=== PATIENT | male | born 1970 | race Caucasian/White ===

== ENCOUNTER 2023-04-23 17:13 | Observation (INO) | payer BC ==
[~2023-04-23] VITALS: Ht 175.3 cm; Wt 104.1 kg
[2023-04-23] MEDS ORDERED: hydrALAZINE 20MG/ML 1ML VIAL IV ONE (18:00)
[2023-04-23 18:20] LABS: BASO # 0.1 10^3/uL (0.0-0.2); EOS # 0.2 10^3/uL (0.0-0.5); EOS % 2.5 % (0.0-3.0); HEMATOCRIT 47.7 % (42.0-52.0); HEMOGLOBIN 15.5 g/dl (13.5-17.5); LYMPH # 2.6 10^3/uL (1.5-5.0); LYMPH % 32.4 % (24.0-44.0); MEAN CORPUSCULAR HEMOGLOBIN 27.4 pg (27.0-33.0); MEAN CORPUSCULAR HGB CONC 32.5 g/dl (32.0-36.5); MEAN CORPUSCULAR VOLUME 84.4 fl (80.0-96.0); MONO % 12.2 % (2.0-8.0); NEUTROPHILS # 4.2 10^3/uL (1.5-8.5); NEUTROPHILS % 51.7 % (36.0-66.0); PLATELET COUNT, AUTOMATED 230 10^3/uL (150-450); RED BLOOD COUNT 5.65 10^6/uL (4.30-6.10)
[2023-04-23 18:32] LABS: INR 1.01
[2023-04-23 18:33] LABS: PARTIAL THROMBOPLASTIN TIME 29.5 SECONDS (24.8-34.2)
[2023-04-23 18:54] LABS: ALBUMIN 3.6 G/DL (3.2-5.2); ALKALINE PHOSPHATASE 75 U/L (46-116); ALT/SGPT 45 U/L (7.0-40); AST/SGOT 25 U/L (<34); BILIRUBIN,DIRECT 0.2 MG/DL (<0.4); BILIRUBIN,TOTAL 0.4 MG/DL (0.3-1.2); BLOOD UREA NITROGEN 17 MG/DL (9-23); CALCIUM LEVEL 8.8 MG/DL (8.5-10.1); CARBON DIOXIDE LEVEL 27 MMOL/L (20-31); CHLORIDE LEVEL 106 MMOL/L (98-107); CK-MB VALUE MASS < 1.0 NG/ML (<3.6); CREATININE FOR GFR 0.97 MG/DL (0.70-1.30); GLOMERULAR FILTRATION RATE > 60.0 (>56); GLUCOSE, FASTING 101 MG/DL (60-100); PHOSPHORUS LEVEL 3.7 MG/DL (2.5-4.9); POTASSIUM SERUM 4.1 MMOL/L (3.5-5.1); SODIUM LEVEL 139 MMOL/L (136-145); TOTAL PROTEIN 6.6 G/DL (5.7-8.2)
[2023-04-23 18:55] LABS: THYROID STIMULATING HORMONE 2.731 uIU/ML (0.55-4.78)
[2023-04-23 18:57] LABS: CPK CREATINE PHOSPHOKINASE 153 U/L (46-171); MB/CK RELATIVE INDEX 0.65 (< OR =4)
[2023-04-23 19:42] LABS: RSV AMPLIFICATION NEGATIVE (NEGATIVE)
[2023-04-23] MEDS ORDERED: MOM 30ML SUSPENSION UDC PO PRN (20:35)
[2023-04-23] MEDS ORDERED: hydrALAZINE 20MG/ML 1ML VIAL IV PRN (20:55)
[2023-04-24] MEDS ORDERED: FLEC1TAB PO
[2023-04-24] MEDS ORDERED: ASPI-161 PO
[2023-04-24] MEDS ORDERED: CO Q300C2 PO
[2023-04-24] MEDS ORDERED: CINN500C15 PO
[2023-04-24] MEDS ORDERED: HOME MED LIST COMPLETE! XX SCH
[2023-04-24] MEDS ORDERED: CODCAP5 PO
[2023-04-24] MEDS ORDERED: ROSU40TA4 PO
[2023-04-24] MEDS ORDERED: VERA180T43 PO
[2023-04-24] MEDS ORDERED: ECHI500C PO
[2023-04-24] MEDS ORDERED: AZEL1SPR3 NARES
[2023-04-24] MEDS ORDERED: PX F0.52 PO
[2023-04-24] MEDS: ACETAMINOPHEN TAB 650MG DOSE (2X325MG) PO PRN ×3 (05:48→23:52)
[2023-04-24 06:49] LABS: HEMATOCRIT 46.9 % (42.0-52.0); HEMOGLOBIN 15.4 g/dl (13.5-17.5); MEAN CORPUSCULAR HEMOGLOBIN 27.5 pg (27.0-33.0); MEAN CORPUSCULAR HGB CONC 32.8 g/dl (32.0-36.5); MEAN CORPUSCULAR VOLUME 83.9 fl (80.0-96.0); PLATELET COUNT, AUTOMATED 226 10^3/uL (150-450); RED BLOOD COUNT 5.59 10^6/uL (4.30-6.10); WHITE BLOOD COUNT 8.2 10^3/uL (4.0-10.0)
[2023-04-24 07:08] LABS: ALBUMIN 3.4 G/DL (3.2-5.2); ALKALINE PHOSPHATASE 69 U/L (46-116); ALT/SGPT 46 U/L (7.0-40); AST/SGOT 25 U/L (<34); BILIRUBIN,TOTAL 0.6 MG/DL (0.3-1.2); BLOOD UREA NITROGEN 20 MG/DL (9-23); CALCIUM LEVEL 8.9 MG/DL (8.5-10.1); CARBON DIOXIDE LEVEL 26 MMOL/L (20-31); CHLORIDE LEVEL 107 MMOL/L (98-107); CREATININE FOR GFR 1.03 MG/DL (0.70-1.30); GLOMERULAR FILTRATION RATE > 60.0 (>56); GLUCOSE, FASTING 98 MG/DL (60-100); MAGNESIUM LEVEL 1.9 MG/DL (1.8-2.4); SODIUM LEVEL 141 MMOL/L (136-145); TOTAL PROTEIN 6.1 G/DL (5.7-8.2)
[2023-04-24] MEDS: ENOXAPARIN 40MG/0.4ML SYRINGE (J1650 PER 10MG) SC SCH (07:26)
[2023-04-24 08:28] VITALS: BP 160/94; TEMP 97.9; O2SAT 99
[2023-04-24] MEDS ORDERED: VERAPAMIL 180MG EXTENDED RELEASE TABLET PO SCH (09:00)
[2023-04-24 11:21] VITALS: BP 159/102; O2SAT 98
[2023-04-24] MEDS: CARVedilol 6.25 MG TAB PO SCH ×3 (11:35→23:50)
[2023-04-24 12:40] VITALS: BP 141/92
[2023-04-24 14:00] VITALS: BP 136/88; TEMP 98.1; O2SAT 97
[2023-04-24 20:00] VITALS: BP 133/87; TEMP 97.7; O2SAT 96
[2023-04-24] MEDS ORDERED: ROSUVASTATIN 10 MG TAB (CRESTOR) PO SCH (21:00)
[2023-04-24] MEDS ORDERED: ASPIRIN 81MG ENTERIC TABLET PO SCH (21:00)
[2023-04-25] VITALS: BP 143/91; O2SAT 99
[2023-04-25] MEDS: CARVedilol 6.25 MG TAB PO SCH (05:44)
[2023-04-25] MEDS ORDERED: CARVedilol 6.25 MG TAB PO ONE (07:05)
[2023-04-25 08:00] VITALS: BP 151/97; TEMP 97.3; O2SAT 97
[2023-04-25 08:06] VITALS: BP 151/97
[2023-04-25] MEDS: ENOXAPARIN 40MG/0.4ML SYRINGE (J1650 PER 10MG) SC SCH (08:06)
[2023-04-25] MEDS ORDERED: CARVedilol 12.5 MG TAB PO ONE ×2 (08:10→09:30)
[2023-04-25] MEDS ORDERED: CARVedilol 12.5 MG TAB PO SCH ×3 (09:00→21:00)
[2023-04-25] MEDS ORDERED: CARV25TA PO (10:26)
[2023-04-25] MEDS ORDERED: CARV12.5 PO (10:26)
[2023-04-25 12:00] VITALS: BP 143/92; O2SAT 92
== END 2023-04-25 13:49 | disposition home or self-care (01) ==
LOC: M ED 17:13 → EDBD 17:13 → M ED INP 20:31 → INTOOBSV 20:31 → M ICU 04-24 08:01
PROVIDERS: ADMIT Family Medicine; ATTEND Family Medicine
DX: I16.0 Hypertensive urgency (principal); I45.81 Long QT syndrome; I11.9 Hypertensive heart disease without heart failure; E78.5 Hyperlipidemia, unspecified; Z79.82 Long term (current) use of aspirin; Z79.899 Other long term (current) drug therapy; Z88.0 Allergy status to penicillin
CPT/HCPCS: 36415; 70450; 71046; 80048; 80053; 80076; 82550; 82553; 83735; 84100; 84439; 84443; 84484; 85025; 85027; 85610; 85730; 87631; 93005; 93041; 94760; 96372; 96374; 99285; J0360; J1650

== ENCOUNTER 2023-11-20 08:39 | Emergency (ER) | payer BC ==
[~2023-11-20] VITALS: Ht 175.3 cm; Wt 110.7 kg
[~2023-11-20 08:39] MED LIST: ASPI-615 PO; AZEL1SPR3 NARES; CARV12.5 PO; CARV25TA PO; CINN500C15 PO; CO Q300C2 PO; CODCAP5 PO; ECHI500C PO; FLEC1TAB PO; PX F0.52 PO; ROSU40TA4 PO; VERA180T43 PO
[2023-11-20 09:23] LABS: BASO # 0.1 10^3/uL (0.0-0.2); BASO % 1.1 % (0.0-1.0); EOS # 0.2 10^3/uL (0.0-0.5); EOS % 3.8 % (0.0-3.0); HEMATOCRIT 45.7 % (42.0-52.0); HEMOGLOBIN 15.3 g/dl (13.5-17.5); LYMPH % 33.3 % (24.0-44.0); MEAN CORPUSCULAR HGB CONC 33.5 g/dl (32.0-36.5); MEAN CORPUSCULAR VOLUME 83.7 fl (80.0-96.0); MONO # 0.5 10^3/uL (0.0-0.8); MONO % 8.2 % (2.0-8.0); NEUTROPHILS # 3.3 10^3/uL (1.5-8.5); NEUTROPHILS % 53.4 % (36.0-66.0); PLATELET COUNT, AUTOMATED 210 10^3/uL (150-450); RED BLOOD COUNT 5.46 10^6/uL (4.30-6.10); WHITE BLOOD COUNT 6.1 10^3/uL (4.0-10.0)
[2023-11-20 09:53] LABS: BLOOD UREA NITROGEN 16 MG/DL (9-23); CARBON DIOXIDE LEVEL 27 MMOL/L (20-31); CHLORIDE LEVEL 109 MMOL/L (98-107); CK-MB VALUE MASS < 1.0 NG/ML (<3.6); CREATININE FOR GFR 0.88 MG/DL (0.70-1.30); GLOMERULAR FILTRATION RATE > 60.0 (>56); GLUCOSE, FASTING 103 MG/DL (60-100); POTASSIUM SERUM 4.5 MMOL/L (3.5-5.1); SODIUM LEVEL 140 MMOL/L (136-145)
[2023-11-20 09:57] LABS: CPK CREATINE PHOSPHOKINASE 157 U/L (46-171); MB/CK RELATIVE INDEX 0.63 (< OR =4)
[2023-11-20] MEDS ORDERED: ISOVUE-370 76% 100ML VIAL As Ordered ONE (12:43)
[2023-11-20] MEDS: FUROSEMIDE 40 MG TAB PO ONE (13:16)
[2023-11-20 13:38] LABS: MAGNESIUM LEVEL 2.2 MG/DL (1.8-2.4)
[2023-11-20 13:39] LABS: CK-MB VALUE MASS < 1.0 NG/ML (<3.6)
[2023-11-20 13:46] LABS: CPK CREATINE PHOSPHOKINASE 178 U/L (46-171); MB/CK RELATIVE INDEX 0.56 (< OR =4)
[2023-11-20] MEDS: KETOROLAC 30 MG/ML 1ML VIAL IV ONE (15:21)
[2023-11-20] MEDS: CARVedilol 12.5 MG TAB PO ONE (17:21)
[2023-11-20] MEDS ORDERED: CHLO125TA PO (18:34)
[2023-11-20] MEDS ORDERED: LISI20TA33 PO (18:34)
[2023-11-20 18:41] VITALS: BP 140/100; TEMP 98; O2SAT 96
== END 2023-11-20 18:45 | disposition home or self-care (01) ==
LOC: M ED 12:39
DX: R07.9 Chest pain, unspecified (principal); I49.3 Ventricular premature depolarization; I10 Essential (primary) hypertension; R51.9 Headache, unspecified; J45.909 Unspecified asthma, uncomplicated; F10.10 Alcohol abuse, uncomplicated; Z88.0 Allergy status to penicillin; Z79.82 Long term (current) use of aspirin; Z79.811 Long term (current) use of aromatase inhibitors; Z79.899 Other long term (current) drug therapy
CPT/HCPCS: 70450; 71046; 71260; 80048; 81001; 82550; 82553; 83735; 83880; 84484; 85025; 93005; 96374; 99284; J1885; Q9967